=== PATIENT | male | born 2000 | race Caucasian/White ===

== ENCOUNTER 2025-01-17 22:17 | Emergency (ER) | payer MEDICAID, OTHER ==
[~2025-01-17] VITALS: Ht 177.8 cm; Wt 83.9 kg
[2025-01-17 23:28] LABS: APPEARANCE,URINE CLEAR (CLEAR); BLOOD, URINE NEGATIVE Ery/uL (NEGATIVE); LEUKOCYTE ESTERASE ,URINE NEGATIVE (NEGATIVE); NITRITE, URINE NEGATIVE (NEGATIVE); UGLUCOSE NEGATIVE (NEGATIVE)
[2025-01-17 23:36] LABS: AMPHETAMINE, URINE NEGATIVE (NEGATIVE); BARBITURATE, URINE NEGATIVE (NEGATIVE); BENZODIAZEPINE, URINE NEGATIVE (NEGATIVE); CANNABINOID, URINE NEGATIVE (NEGATIVE); COCCAINE, URINE NEGATIVE (NEGATIVE); OPIATE, URINE NEGATIVE (NEGATIVE)
[2025-01-17 23:41] LABS: PLATELET COUNT (AUTO) 257 K/uL (150-450); RED BLOOD CELL COUNT(AUTO) 4.56 MIL/uL (4.5-6.0); RED CELL DISTRIBUTION WIDTH 13.0 % (11.5-15.0); WHITE BLOOD COUNT (AUTO) 10.3 K/uL (4.3-11.0)
[2025-01-17 23:51] LABS: CALCIUM, SERUM 9.2 mg/dL (8.5-10.1); CREATININE 0.9 mg/dL (0.6-1.3); SODIUM SERUM 138 mmol/L (136-145); UREA NITROGEN, BLOOD 13 mg/dL (7-18)
[2025-01-17 23:56] LABS: ALCOHOL, BLOOD < 3 mg/dL (0-10); ASPARTATE AMINOTRANSFERASE 22 U/L (15-37); TOTAL PROTEIN, SERUM 7.8 g/dL (6.4-8.2)
[2025-01-18] MEDS ORDERED: LEVOFLOXACIN 500 MG /D5W 100ML 100 ML IV ONE (01:51)
[2025-01-18] MEDS ORDERED: KETOROLAC TROMETHAMINE INJ 30 MG/ML VIAL ONE (01:51)
[2025-01-18] MEDS ORDERED: METRONIDAZOLE 500MG/ NS 100ML 100 ML IV ONE (01:51)
[2025-01-18] MEDS: IV NS 0.9% 1,000 ML IV ONE (02:07)
[2025-01-18] MEDS: FLAGYL/NS RTU 500 MG/100 ML PIGGYBACK IV ONE (02:08)
[2025-01-18] MEDS: KETOROLAC TROMETHAMINE INJ 30 MG/ML VIAL IV ONE (02:08)
[2025-01-18] MEDS ORDERED: LEVO500T90 PO (02:15)
[2025-01-18] MEDS ORDERED: KETO10TA2 PO (02:15)
[2025-01-18] MEDS ORDERED: METR500T PO (02:15)
[2025-01-18] MEDS: LEVOFLOXACIN 500 MG /D5W 100ML 500 MG/100 ML PIGGYBACK IV ONE (02:54)
[2025-01-18 04:06] VITALS: BP 127/76; TEMP 98.4; O2SAT 99
[2025-01-19] MEDS ORDERED: KETO10TA2 PO (09:44)
[2025-01-19] MEDS ORDERED: METR500T PO (09:44)
[2025-01-19] MEDS ORDERED: LEVO500T90 PO (09:44)
== END 2025-01-18 04:07 | disposition home or self-care (01) ==
LOC: ER 23:29 → EDBD 23:29 → ER 01-18 04:07
DX: K57.32 Diverticulitis of large intestine without perforation or abscess without bleeding (principal); R10.32 Left lower quadrant pain; R11.0 Nausea; Z60.2 Problems related to living alone; Z79.899 Other long term (current) drug therapy
CPT/HCPCS: 99285; 74176; 85025; 83690; 81003; 36415; 80053; 80320; 80307; 96365; 96366; 96367; 96375; 87040; J1885; J7030; J1956; G0480